=== PATIENT | female | born 1930 | race Caucasian/White ===

== ENCOUNTER 2018-04-16 01:43 | Observation (INO) | payer MEDICARE, BC ==
--- NOTE | 2018-04-16 01:49 | EDM.PDOC ---
ED HPI GENERAL MEDICAL PROBLEM - General Stated Complaint: AMBULANCE - FELL Time Seen by Provider: 04/16/18 01:45 Source of Information: Reports: Patient, EMS History Limitations: Reports: No Limitations - History of Present Illness INITIAL COMMENTS - FREE TEXT/NARRATIVE: initially pt unable recall what happened except going to bathroom EMS arrived with pt sitting on bed c/o pain left arm left brow. pt now c/o nausea and hit her face against door frame managed to get back up to bed and called Left Chest Pain Score (Numeric/FACES): 5 - Related Data Allergies Allergy/AdvReac Type Severity Reaction Status Date / Time amoxicillin Allergy Rash Verified 04/16/18 02:43 clavulanic acid Allergy Rash Verified 04/16/18 02:43 [From Augmentin] sulfamethoxazole Allergy Cannot Verified 04/16/18 02:43 [From Bactrim] Remember trimethoprim [From Bactrim] Allergy Cannot Verified 04/16/18 02:43 Remember levofloxacin [From Levaquin] AdvReac Nausea Verified 04/16/18 02:43 Home Meds: Home Meds Calcium Carb/Vitamin D3/Vit K1 [Viactiv Soft Chew Tablet] 1 each PO DAILY [History] Cholestyramine/Aspartame [Cholestyramine Light] 4 gm PO DAILY 04/16/18 [History] Folic Acid 1 mg PO DAILY 04/16/18 [History] Oxybutynin Chloride [Ditropan Xl] 10 mg PO DAILY 04/16/18 [History] Simvastatin [Zocor] 40 mg PO BEDTIME 04/16/18 [History] ED ROS GENERAL - Review of Systems Review Of Systems: ROS reveals no pertinent complaints other than HPI. ED EXAM, HEAD INJURY - Physical Exam Exam: See Below Exam Limited By: No Limitations General Appearance: Alert, WD/WN Head: Other (left brow haematoma). No: Perez's Sign, Raccoon Eyes Nexus Criteria: No: Posterior, Midline Cervical Tenderness, Evidence of Intoxication, Altered Level of Consciousness, Focal Neurological Deficit, Painful Distraction Injuries Ears: Hearing Grossly Normal Throat/Mouth: Normal Voice, No Airway Compromise Neck: Non-Tender, Full Range of Motion Respiratory: No Respiratory Distress, Other (tender along left lateral chest wall) Cardiovascular: Regular Rate, Rhythm GI/Abdominal Exam: Soft, Non-Tender Extremities: Other (left deltoid haematoma but able to move, NV wnl) Neurologic: No Motor/Sensory Deficits, Alert, Oriented x 3 Skin: Normal Color, Warm/Dry - Wenceslao Coma Score Best Eye Response (Wenceslao): (4) Open Spontaneously Best Verbal Response (Wenceslao): (5) Oriented Best Motor Response (Wenceslao): (6) Obeys Commands [place] Total: 15 Course - Vital Signs Last Recorded V/S: Last Vital Signs Temp 36.7 C 04/16/18 01:38 Pulse 71 04/16/18 01:38 Resp 21 H 04/16/18 01:38 BP 166/64 H 04/16/18 01:38 Pulse Ox 97 04/16/18 01:38 - Orders/Labs/Meds Labs: Laboratory Tests 04/16/18 04/16/18 Range/Units 01:50 01:50 WBC 9.7 (5.0-10.0) 10^3/uL RBC 4.34 (4.2-5.4) 10^6/uL Hgb 13.0 (12.0-16.0) g/dL Hct 39.2 (37.0-47.0) % MCV 90.3 (80-100) fL MCH 30.0 (27.0-34.0) pg MCHC 33.2 (33.0-35.0) g/dL Plt Count 197 (150-450) 10^3/uL Neut % (Auto) 82.3 H (42.2-75.2) % Lymph % (Auto) 8.9 L (20.5-50.1) % [place] % (Auto) 7.9 (2-8) % Eos % (Auto) 0.7 L (1.0-3.0) % Baso % (Auto) 0.2 (0.0-1.0) % Sodium 136 (135-145) mmol/L Potassium 3.8 (3.6-5.0) mmol/L Chloride 101 (101-111) mmol/L Carbon Dioxide 27.0 (21.0-31.0) mmol/L Anion Gap 11.8 BUN 15 (7-18) mg/dL Creatinine 0.7 (0.6-1.3) mg/dL Est Cr Clr Drug Dosing TNP Estimated GFR (MDRD) > 60 BUN/Creatinine Ratio 21.42 Glucose 144 H (74-105) mg/dL Calcium 8.5 (8.4-10.2) mg/dl Total Bilirubin 0.5 (0.2-1.0) mg/dL AST 28 (10-42) IU/L ALT 21 (10-60) IU/L Alkaline Phosphatase 47 (42-121) IU/L Troponin I < 0.02 (0.00-0.02) ng/ml Total Protein 6.5 L (6.7-8.2) g/dl Albumin 3.7 (3.2-5.5) g/dl Globulin 2.8 Albumin/Globulin Ratio 1.32 Meds: Medications Discontinued Medications Generic Name Dose Route Start Last Admin Trade Name Freq PRN Reason Stop Dose Admin Hydromorphone HCl 1 mg 04/16/18 03:34 Dilaudid IVPUSH 04/16/18 03:35 ONETIME ONE Morphine Sulfate 1 mg 04/16/18 02:08 04/16/18 02:19 Morphine IVPUSH 04/16/18 02:09 1 mg ONETIME ONE Administration Ondansetron HCl 4 mg 04/16/18 01:51 04/16/18 02:00 Zofran IV 04/16/18 01:52 4 mg ONETIME ONE Administration - Re-Assessments/Exams Free Text/Narrative Re-Assessment/Exam: 04/16/18 03:[address] Bosch who kindly admitted pt to observation Departure - Departure Time of Disposition: 03:38 Disposition: Refer to Observation Condition: Fair Clinical Impression: Multiple rib fractures Qualifiers: Encounter type: initial encounter Fracture type: closed Laterality: left Qualified Code(s): S22.42XA - Multiple fractures of ribs, left side, initial encounter for closed fracture Forehead contusion Qualifiers: Encounter type: initial encounter Qualified Code(s): S00.83XA - Contusion of other part of head, initial encounter Contusion, arm, upper Qualifiers: Encounter type: initial encounter Laterality: left Qualified Code(s): S40.022A - Contusion of left upper arm, initial encounter - Discharge Information Forms: ED Department Discharge
[2018-04-16] MEDS ORDERED: Ondansetron 4 MG/2 ML SDV IV ONE (01:51)
[2018-04-16] MEDS ORDERED: Morphine 2 MG/ML Syringe IVPUSH ONE (02:08)
[2018-04-16 02:15] LABS: CHLORIDE,CL 101 mmol/L (101-111); SODIUM,NA 136 mmol/L (135-145)
[2018-04-16] MEDS ORDERED: HYDROmorphone 0.5 MG/0.5 ML Syringe IVPUSH ONE (03:34)
[2018-04-16] MEDS ORDERED: Metoclopramide 10 MG/2 ML SDV IVPUSH ONE (04:11)
[2018-04-16] MEDS ORDERED: Sodium Chloride 0.9% 10 ML Syringe FLUSH PRN (05:24)
[2018-04-16] MEDS ORDERED: Ibuprofen 400 MG Tab PO PRN (05:24)
[2018-04-16] MEDS ORDERED: Acetaminophen 325 MG Tab PO PRN (05:24)
[2018-04-16] MEDS ORDERED: Zolpidem 5 MG Tab PO PRN (05:24)
[2018-04-16] MEDS ORDERED: Morphine 2 MG/ML Syringe IVPUSH PRN (05:24)
[2018-04-16] MEDS: Ondansetron 4 MG Tab.DIS PO PRN (08:25)
[2018-04-16] MEDS ORDERED: Lidocaine 5% 700 MG Patch TOP SCH (09:00)
[2018-04-16] MEDS: oxyCODONE 5 MG Tab PO PRN (10:30)
--- NOTE | 2018-04-16 10:36 | PCM.HP ---
H&P History of Present Illness - General Date of Service: 04/16/18 Admit Problem/Dx: Admission Diagnosis/Problem Admission Diagnosis/Problem Fall Source of Information: Patient, Provider - History of Present Illness Initial Comments - Free Text/Narative: The patient is an 87-year-old lady who has a history of dyslipidemia. The patient reassessed in an assisted living facility. Last night the patient got up and somehow fell into the door frame. She hit her head and chest. According to the patient there was no associated loss of consciousness. No chest pain, no shortness of breath. Otherwise she has been in good health lately. She has been quite active. Left Chest Pain Score (Numeric/FACES): 0 - Related Data Allergies/Adverse Reactions: Allergies Allergy/AdvReac Type Severity Reaction Status Date / Time amoxicillin Allergy Rash Verified 04/16/18 04:04 clavulanic acid Allergy Rash Verified 04/16/18 04:04 [From Augmentin] sulfamethoxazole Allergy Cannot Verified 04/16/18 04:04 [From Bactrim] Remember trimethoprim [From Bactrim] Allergy Cannot Verified 04/16/18 04:04 Remember levofloxacin [From Levaquin] AdvReac Nausea Verified 04/16/18 04:04 Home Medications: Home Meds Calcium Carb/Vitamin D3/Vit K1 [Viactiv Soft Chew Tablet] 1 each PO DAILY [History] Cholestyramine/Aspartame [Cholestyramine Light] 4 gm PO DAILY 04/16/18 [History] Folic Acid 1 mg PO DAILY 04/16/18 [History] Oxybutynin Chloride [Ditropan Xl] 10 mg PO DAILY 04/16/18 [History] Simvastatin [Zocor] 40 mg PO BEDTIME 04/16/18 [History] Past Medical History Cardiovascular History: Reports: High Cholesterol Gastrointestinal History: Reports: Diverticulosis Genitourinary History: Reports: Other (See Below) Other Genitourinary History: overactive bladder Musculoskeletal History: Reports: Osteoporosis, RA, Other (See Below) Other Musculoskeletal History: DJD Dermatologic History: Reports: Other (See Below) Other Dermatologic History: actinic keratosis - Past Surgical History GI Surgical History: Reports: Appendectomy, Cholecystectomy, Colonoscopy Female Surgical History: Reports: Breast Biopsy, Hysterectomy Musculoskeletal Surgical History: Reports: Hip Replacement, Other (See Below) Other Musculoskeletal Surgeries/Procedures:: total left hip replacement. steroid injection right shoulder 03/28/18 Dermatological Surgical History: Reports: Skin Biopsy Social & Family History - Family History Family Medical History: Noncontributory - Tobacco Use Smoking Status *Q: Unknown Ever Smoked Second Hand Smoke Exposure: No - Caffeine Use Caffeine Use: Reports: None - Recreational Drug Use Recreational Drug Use: No H&P Review of Systems - Review of Systems: Review Of Systems: See Below General: Denies: Fever, Chills Pulmonary: Denies: Shortness of Breath Cardiovascular: Reports: Chest Pain (Since the fall with deep breath) Gastrointestinal: Denies: Abdominal Pain Genitourinary: Denies: Dysuria Psychiatric: Denies: Confusion Neurological: Denies: Dizziness, Syncope Exam - Exam Exam: See Below - Vital Signs Vital Signs: Last Vital Signs Temp 36.5 C 04/16/18 08:00 Pulse 117 H 04/16/18 08:00 Resp 18 04/16/18 08:00 BP 167/80 H 04/16/18 08:00 Pulse Ox 92 L 04/16/18 08:00 Weight: 63.503 kg - Exam General: Alert, Oriented Neck: Supple Lungs: Clear to Auscultation, Normal Respiratory Effort Cardiovascular: Regular Rate, Regular Rhythm, Systolic Murmur GI/Abdominal Exam: Normal Bowel Sounds, Soft, Non-Tender Extremities: No Pedal Edema - Patient Data Lab Results Last 24 hrs: Laboratory Results - last 24 hr 04/16/18 04/16/18 Range/Units 01:50 01:50 WBC 9.7 (5.0-10.0) 10^3/uL RBC 4.34 (4.2-5.4) 10^6/uL Hgb 13.0 (12.0-16.0) g/dL Hct 39.2 (37.0-47.0) % MCV 90.3 (80-100) fL MCH 30.0 (27.0-34.0) pg MCHC 33.2 (33.0-35.0) g/dL Plt Count 197 (150-450) 10^3/uL Neut % (Auto) 82.3 H (42.2-75.2) % Lymph % (Auto) 8.9 L (20.5-50.1) % [place] % (Auto) 7.9 (2-8) % Eos % (Auto) 0.7 L (1.0-3.0) % Baso % (Auto) 0.2 (0.0-1.0) % Sodium 136 (135-145) mmol/L Potassium 3.8 (3.6-5.0) mmol/L Chloride 101 (101-111) mmol/L Carbon Dioxide 27.0 (21.0-31.0) mmol/L Anion Gap 11.8 BUN 15 (7-18) mg/dL Creatinine 0.7 (0.6-1.3) mg/dL Est Cr Clr Drug Dosing TNP Estimated GFR (MDRD) > 60 BUN/Creatinine Ratio 21.42 Glucose 144 H (74-105) mg/dL Calcium 8.5 (8.4-10.2) mg/dl Total Bilirubin 0.5 (0.2-1.0) mg/dL AST 28 (10-42) IU/L ALT 21 (10-60) IU/L Alkaline Phosphatase 47 (42-121) IU/L Troponin I < 0.02 (0.00-0.02) ng/ml Total Protein 6.5 L (6.7-8.2) g/dl Albumin 3.7 (3.2-5.5) g/dl Globulin 2.8 Albumin/Globulin Ratio 1.32 Result Diagrams: 04/16/18 01:50 04/16/18 01:50 Imaging Impressions Last 24 hrs: Per reading on CT of the chest that the patient was noted to have nondisplaced fractures of the fourth through ninth ribs on the left posterior left early. No associated pneumothorax. X-ray of the left arm showed no fracture CT of the head without contrast showed no acute infarction, intracranial hemorrhage or mass CT of the cervical spine showed no acute fracture dislocation - Problem List (1) Contusion, arm, upper SNOMED Code(s): 64685623 ICD Code: S40.029A - CONTUSION OF UNSPECIFIED UPPER ARM, INITIAL ENCOUNTER Status: Acute Current Visit: No Qualifiers: Encounter type: initial encounter Laterality: left Qualified Code(s): S40.022A - Contusion of left upper arm, initial encounter (2) Forehead contusion SNOMED Code(s): 797497924 ICD Code: S00.83XA - CONTUSION OF OTHER PART OF HEAD, INITIAL ENCOUNTER Status: Acute Current Visit: No Qualifiers: Encounter type: initial encounter Qualified Code(s): S00.83XA - Contusion of other part of head, initial encounter (3) Multiple rib fractures SNOMED Code(s): 3202021 ICD Code: S22.49XA - MULTIPLE FRACTURES OF RIBS, UNSP SIDE, INIT FOR CLOS FX Status: Acute Current Visit: No Qualifiers: Encounter type: initial encounter Fracture type: closed Laterality: left Qualified Code(s): S22.42XA - Multiple fractures of ribs, left side, initial encounter for closed fracture Problem List Initiated/Reviewed/Updated: Yes Orders Last 24hrs: Active Orders 24 hr Category Date Time Status Patient Status [ADT] Routine ADT 04/16/18 05:24 Active IS (RT) [RT Incentive Spirometry] [RC] ASDIRECTED Care 04/16/18 05:31 Active Oxygen Therapy [RC] PRN Care 04/16/18 05:24 Active Peripheral IV Care [RC] 08,20 Care 04/16/18 05:25 Active Up With Assistance [RC] ASDIRECTED Care 04/16/18 05:24 Active VTE/DVT Education [RC] PER UNIT ROUTINE Care 04/16/18 05:24 Active Vital Signs [RC] 04,08,12,16,20,00 Care 04/16/18 05:24 Active OT Evaluation and Treatment [CONS] Routine Cons 04/16/18 05:24 Active PT Evaluation and Treatment [CONS] Routine Cons 04/16/18 05:24 Active Regular Diet [DIET] Diet 04/16/18 Breakfast Active BASIC METABOLIC PANEL,BMP [CHEM] AM Lab 04/17/18 05:15 Ordered CBC WITH AUTO DIFF [HEME] AM Lab 04/17/18 05:15 Ordered Acetaminophen [Tylenol] Med 04/16/18 05:24 Active 650 mg PO Q4H PRN Folic Acid Med 04/17/18 09:00 Ordered 1 mg PO DAILY Ibuprofen [Motrin] Med 04/16/18 05:24 Active 400 mg PO Q6H PRN Lidocaine 5% [Lidoderm 5%] Med 04/16/18 09:00 Active 700 mg TOP DAILY Morphine Med 04/16/18 05:24 Active 1 mg IVPUSH Q2H PRN Ondansetron [Zofran ODT] Med 04/16/18 05:24 Active 4 mg PO Q6H PRN Oxybutynin Chloride [Ditropan Xl] Med 04/17/18 09:00 Ordered 10 mg PO DAILY Simvastatin [Zocor] Med 04/16/18 21:00 Ordered 40 mg PO BEDTIME Sodium Chloride 0.9% [Saline Flush] Med 04/16/18 05:24 Active 10 ml FLUSH ASDIRECTED PRN Zolpidem [Ambien] Med 04/16/18 05:24 Active 5 mg PO BEDTIME PRN oxyCODONE Med 04/16/18 05:24 Active 5 mg PO Q4H PRN Antiembolic Hose [OM.PC] Per Unit Routine Oth 04/16/18 05:24 Ordered Peripheral IV Insertion Adult [OM.PC] Routine Oth 04/16/18 05:24 Ordered Saline Lock Insert [OM.PC] Routine Oth 04/16/18 05:24 Ordered Resuscitation Status Routine Resus Stat 04/16/18 05:24 Ordered Medication Orders Acetaminophen (Tylenol) 650 mg PO Q4H PRN PRN Reason: Pain (Mild 1-3)/fever Folic Acid (Folic Acid) 1 mg PO DAILY [facility] Ibuprofen (Motrin) 400 mg PO Q6H PRN PRN Reason: Pain (mild 1-3) Lidocaine (Lidoderm 5%) 700 mg TOP DAILY [facility] Morphine Sulfate (Morphine) 1 mg IVPUSH Q2H PRN PRN Reason: Pain (severe 7-10) Non-Formulary Medication (Oxybutynin Chloride [Ditropan Xl]) 10 mg PO DAILY [facility] Ondansetron HCl (Zofran Odt) 4 mg PO Q6H PRN PRN Reason: nausea, able to take PO Last Admin: 04/16/18 08:25 Dose: 4 mg Oxycodone HCl (Oxycodone) 5 mg PO Q4H PRN PRN Reason: Pain (moderate 4-6) Simvastatin (Zocor) 40 mg PO BEDTIME [facility] Sodium Chloride (Saline Flush) 10 ml FLUSH ASDIRECTED PRN PRN Reason: Keep Vein Open Zolpidem Tartrate (Ambien) 5 mg PO BEDTIME PRN PRN Reason: Sleep Assessment/Plan Comment:: 87-year-old lady who lives in assisted living facility. She has been quite active and moving around independently. She had a fall. No apparent loss of consciousness. She has a apparent injury to left forehead. #1 fall no apparent syncopal We'll follow clinically Will have physical and occupational therapy evaluation and treatment #2 left sided rib fractures Severe pain with movements. We'll start scheduled Tylenol, Lidoderm patch Use Motrin, oxycodone, IV morphine as needed for pain. #3 dyslipidemia Continue Zocor #4 DVT prophylaxis With the bruises I we'll hold the heparin/Lovenox for today Use KIRAN rosales
[2018-04-16] MEDS: Acetaminophen 325 MG Tab PO SCH ×3 (13:47→20:44)
[2018-04-16] MEDS: Simvastatin 40 MG Tab PO SCH (20:44)
[2018-04-17] MEDS: oxyCODONE 5 MG Tab PO PRN ×2 (01:39→09:35)
[2018-04-17 06:55] LABS: CHLORIDE,CL 99 mmol/L (101-111); SODIUM,NA 135 mmol/L (135-145)
[2018-04-17] MEDS: Folic Acid 1 MG Tab PO SCH (09:35)
[2018-04-17] MEDS: Oxybutynin 5 MG Tab.ER PO SCH (09:35)
[2018-04-17] MEDS: Lidocaine 5% 700 MG Patch TOP SCH (09:37)
[2018-04-17] MEDS: Acetaminophen 325 MG Tab PO SCH ×3 (09:37→21:43)
[2018-04-17] MEDS ORDERED: oxyCODONE 5 MG Tab PO PRN (12:37)
--- NOTE | 2018-04-17 12:37 | PCM.PN ---
- General Info Date of Service: 04/17/18 Admission Dx/Problem (Free Text): Admission Diagnosis/Problem Admission Diagnosis/Problem Fall Subjective Update: Complains of no pain while in bed and not moving. When getting up or turning in bed she has moderate to severe left chest wall pain. Had constipation earlier but then had a bowel movement yet today. No associated fever, cough. Was feeling lightheaded after taking an oxycodone. - Review of Systems General: Reports: Malaise. Denies: Fever, Weakness Pulmonary: Denies: Shortness of Breath Cardiovascular: Reports: Chest Pain (On the left side with movements) Gastrointestinal: Reports: Constipation. Denies: Abdominal Pain Genitourinary: Denies: Dysuria Neurological: Denies: Confusion, Syncope, Change in Speech - Patient Data Vitals - Most Recent: Last Vital Signs Temp 36.3 C 04/17/18 11:13 Pulse 72 04/17/18 11:13 Resp 20 04/17/18 11:13 BP 142/94 H 04/17/18 11:13 Pulse Ox 94 L 04/17/18 11:13 Weight - Most Recent: 63.503 kg I&O - Last 24 Hours: Intake & Output 04/16/18 04/17/18 04/17/18 22:59 06:59 14:59 Intake Total 530 Output Total 475 Balance 55 Lab Results Last 24 Hours: Laboratory Results - last 24 hr 04/17/18 04/17/18 Range/Units 06:00 06:00 WBC 9.9 (5.0-10.0) 10^3/uL RBC 4.27 (4.2-5.4) 10^6/uL Hgb 12.9 (12.0-16.0) g/dL Hct 38.7 (37.0-47.0) % MCV 90.6 (80-100) fL MCH 30.2 (27.0-34.0) pg MCHC 33.3 (33.0-35.0) g/dL Plt Count 202 (150-450) 10^3/uL Neut % (Auto) 85.8 H (42.2-75.2) % Lymph % (Auto) 6.9 L (20.5-50.1) % [place] % (Auto) 7.2 (2-8) % Eos % (Auto) 0.0 L (1.0-3.0) % Baso % (Auto) 0.1 (0.0-1.0) % Sodium 135 (135-145) mmol/L Potassium 3.6 (3.6-5.0) mmol/L Chloride 99 L (101-111) mmol/L Carbon Dioxide 28.0 (21.0-31.0) mmol/L Anion Gap 11.6 BUN 16 (7-18) mg/dL Creatinine 0.6 (0.6-1.3) mg/dL Est Cr Clr Drug Dosing 52.58 mL/min Estimated GFR (MDRD) > 60 Glucose 114 H (74-105) mg/dL Calcium 8.5 (8.4-10.2) mg/dl Med Orders - Current: Current Medications Acetaminophen (Tylenol) 650 mg PO Q4H PRN PRN Reason: Pain (Mild 1-3)/fever Acetaminophen (Tylenol) 650 mg PO TID [facility] Last Admin: 04/17/18 09:37 Dose: 650 mg Folic Acid (Folic Acid) 1 mg PO DAILY [facility] Last Admin: 04/17/18 09:35 Dose: 1 mg Ibuprofen (Motrin) 400 mg PO Q6H PRN PRN Reason: Pain (mild 1-3) Lidocaine (Lidoderm 5%) 700 mg TOP DAILY [facility] Last Admin: 04/17/18 09:37 Dose: 700 mg Miscellaneous Information (Remove Patch) 1 ea TRDERM DAILY@1999 [facility] Morphine Sulfate (Morphine) 1 mg IVPUSH Q2H PRN PRN Reason: Pain (severe 7-10) Ondansetron HCl (Zofran Odt) 4 mg PO Q6H PRN PRN Reason: nausea, able to take PO Last Admin: 04/16/18 08:25 Dose: 4 mg Oxybutynin Chloride (Oxybutynin Er) 10 mg PO DAILY [facility] Last Admin: 04/17/18 09:35 Dose: 10 mg Oxycodone HCl (Oxycodone) 5 mg PO Q4H PRN PRN Reason: Pain (moderate 4-6) Last Admin: 04/17/18 09:35 Dose: 5 mg Senna/Docusate Sodium (Senna Plus) 1 tab PO BID [facility] Simvastatin (Zocor) 40 mg PO BEDTIME [facility] Last Admin: 04/16/18 20:44 Dose: 40 mg Sodium Chloride (Saline Flush) 10 ml FLUSH ASDIRECTED PRN PRN Reason: Keep Vein Open Last Admin: 04/16/18 20:46 Dose: 10 ml Zolpidem Tartrate (Ambien) 5 mg PO BEDTIME PRN PRN Reason: Sleep Discontinued Medications Hydromorphone HCl (Dilaudid) 1 mg IVPUSH ONETIME ONE Stop: 04/16/18 03:35 Last Admin: 04/16/18 04:25 Dose: 1 mg Lidocaine (Lidoderm 5%) 700 mg TOP DAILY [facility] Last Admin: 04/16/18 10:28 Dose: 700 mg Metoclopramide HCl (Reglan) 10 mg IVPUSH ONETIME ONE Stop: 04/16/18 04:12 Last Admin: 04/16/18 04:19 Dose: 10 mg Morphine Sulfate (Morphine) 1 mg IVPUSH ONETIME ONE Stop: 04/16/18 02:09 Last Admin: 04/16/18 02:19 Dose: 1 mg Ondansetron HCl (Zofran) 4 mg IV ONETIME ONE Stop: 04/16/18 01:52 Last Admin: 04/16/18 02:00 Dose: 4 mg - Exam General: Alert, Oriented Neck: Supple Lungs: Clear to Auscultation, Normal Respiratory Effort Cardiovascular: Regular Rate, Regular Rhythm Extremities: No Pedal Edema - Problem List & Annotations (1) Contusion, arm, upper SNOMED Code(s): 42200006 Code(s): S40.029A - CONTUSION OF UNSPECIFIED UPPER ARM, INITIAL ENCOUNTER Status: Acute Current Visit: No Qualifiers: Encounter type: initial encounter Laterality: left Qualified Code(s): S40.022A - Contusion of left upper arm, initial encounter (2) Forehead contusion SNOMED Code(s): 420848610 Code(s): S00.83XA - CONTUSION OF OTHER PART OF HEAD, INITIAL ENCOUNTER Status: Acute Current Visit: No Qualifiers: Encounter type: initial encounter Qualified Code(s): S00.83XA - Contusion of other part of head, initial encounter (3) Multiple rib fractures SNOMED Code(s): 8373990 Code(s): S22.49XA - MULTIPLE FRACTURES OF RIBS, UNSP SIDE, INIT FOR CLOS FX Status: Acute Current Visit: No Qualifiers: Encounter type: initial encounter Fracture type: closed Laterality: left Qualified Code(s): S22.42XA - Multiple fractures of ribs, left side, initial encounter for closed fracture - Problem List Review Problem List Initiated/Reviewed/Updated: Yes - My Orders Last 24 Hours: My Active Orders 04/16/18 21:00 Simvastatin [Zocor] 40 mg PO BEDTIME 04/17/18 09:00 Folic Acid 1 mg PO DAILY Lidocaine 5% [Lidoderm 5%] 700 mg TOP DAILY Oxybutynin [Oxybutynin ER] 10 mg PO DAILY 04/17/18 20:00 Remove Patch 1 ea TRDERM DAILY@199904/17/18 21:00 Docusate Sodium/Sennosides [Senna Plus] 1 tab PO BID - Plan Plan:: 87-year-old lady who lives in assisted living facility. She has been quite active and moving around independently. She had a fall. No apparent loss of consciousness. She has a apparent injury to left forehead. #1 fall no apparent syncope We'll follow clinically Continue to have physical and occupational therapy evaluation and treatment #2 left sided rib fractures Severe pain with movements. We'll start scheduled Tylenol, Lidoderm patch Use Motrin, oxycodone, IV morphine as needed for pain. We'll decrease oxycodone dose. #3 dyslipidemia Continue Zocor #4 DVT prophylaxis With the bruises I will hold the heparin/Lovenox for now Use KIRAN rosales
[2018-04-17] MEDS: Ondansetron 4 MG Tab.DIS PO PRN (15:00)
[2018-04-17] MEDS: Metoclopramide 10 MG Tab PO PRN (18:11)
[2018-04-17] MEDS: Simvastatin 40 MG Tab PO SCH (21:42)
[2018-04-17] MEDS: REMOVE LIDOCAINE TRDERM SCH (21:45)
[2018-04-18] MEDS: Lidocaine 5% 700 MG Patch TOP SCH (09:41)
[2018-04-18] MEDS: Oxybutynin 5 MG Tab.ER PO SCH (09:42)
[2018-04-18] MEDS: Acetaminophen 325 MG Tab PO SCH ×3 (09:42→21:39)
[2018-04-18] MEDS: Ondansetron 4 MG Tab.DIS PO PRN (09:43)
[2018-04-18] MEDS: Folic Acid 1 MG Tab PO SCH (09:43)
--- NOTE | 2018-04-18 11:12 | PCM.PN ---
- General Info Date of Service: 04/18/18 Admission Dx/Problem (Free Text): Admission Diagnosis/Problem Admission Diagnosis/Problem Fall Subjective Update: Complains of no pain while in bed and not moving. When getting up or turning in bed she has moderate to severe left chest wall pain sometimes associated with nausea, dry heaving. pain since fall, No associated fever, cough. Functional Status: Reports: Tolerating Diet. Denies: Pain Controlled - Review of Systems General: Denies: Fever, Weakness Pulmonary: Denies: Shortness of Breath Cardiovascular: Reports: Chest Pain Gastrointestinal: Denies: Abdominal Pain Neurological: Denies: Confusion - Patient Data Vitals - Most Recent: Last Vital Signs Temp 37.1 C 04/18/18 07:25 Pulse 79 04/18/18 07:25 Resp 18 04/18/18 07:25 BP 175/70 H 04/18/18 07:25 Pulse Ox 94 L 04/18/18 07:25 Weight - Most Recent: 63.503 kg I&O - Last 24 Hours: Intake & Output 04/17/18 04/18/18 04/18/18 22:59 06:59 14:59 Intake Total 250 100 100 Output Total 450 Balance -200 100 100 Med Orders - Current: Current Medications Acetaminophen (Tylenol) 650 mg PO Q4H PRN PRN Reason: Pain (Mild 1-3)/fever Acetaminophen (Tylenol) 650 mg PO TID [facility] Last Admin: 04/18/18 09:42 Dose: 650 mg Folic Acid (Folic Acid) 1 mg PO DAILY [facility] Last Admin: 04/18/18 09:43 Dose: 1 mg Ibuprofen (Motrin) 400 mg PO Q6H PRN PRN Reason: Pain (mild 1-3) Lidocaine (Lidoderm 5%) 700 mg TOP DAILY [facility] Last Admin: 04/18/18 09:41 Dose: 700 mg Metoclopramide HCl (Reglan) 10 mg PO Q6H PRN PRN Reason: Nausea Last Admin: 04/17/18 18:11 Dose: 10 mg Miscellaneous Information (Remove Patch) 1 ea TRDERM DAILY@1999 [facility] Last Admin: 04/17/18 21:45 Dose: Not Given Morphine Sulfate (Morphine) 1 mg IVPUSH Q2H PRN PRN Reason: Pain (severe 7-10) Ondansetron HCl (Zofran Odt) 4 mg PO Q6H PRN PRN Reason: nausea, able to take PO Last Admin: 04/18/18 09:43 Dose: 4 mg Oxybutynin Chloride (Oxybutynin Er) 10 mg PO DAILY [facility] Last Admin: 04/18/18 09:42 Dose: 10 mg Oxycodone HCl (Oxycodone) 2.5 mg PO Q4H PRN PRN Reason: Pain (moderate 4-6) Senna/Docusate Sodium (Senna Plus) 1 tab PO BID [facility] Last Admin: 04/18/18 09:43 Dose: 1 tab Simvastatin (Zocor) 40 mg PO BEDTIME [facility] Last Admin: 04/17/18 21:42 Dose: 40 mg Sodium Chloride (Saline Flush) 10 ml FLUSH ASDIRECTED PRN PRN Reason: Keep Vein Open Last Admin: 04/16/18 20:46 Dose: 10 ml Zolpidem Tartrate (Ambien) 5 mg PO BEDTIME PRN PRN Reason: Sleep Discontinued Medications Hydromorphone HCl (Dilaudid) 1 mg IVPUSH ONETIME ONE Stop: 04/16/18 03:35 Last Admin: 04/16/18 04:25 Dose: 1 mg Lidocaine (Lidoderm 5%) 700 mg TOP DAILY [facility] Last Admin: 04/16/18 10:28 Dose: 700 mg Metoclopramide HCl (Reglan) 10 mg IVPUSH ONETIME ONE Stop: 04/16/18 04:12 Last Admin: 04/16/18 04:19 Dose: 10 mg Morphine Sulfate (Morphine) 1 mg IVPUSH ONETIME ONE Stop: 04/16/18 02:09 Last Admin: 04/16/18 02:19 Dose: 1 mg Ondansetron HCl (Zofran) 4 mg IV ONETIME ONE Stop: 04/16/18 01:52 Last Admin: 04/16/18 02:00 Dose: 4 mg Oxycodone HCl (Oxycodone) 5 mg PO Q4H PRN PRN Reason: Pain (moderate 4-6) Last Admin: 04/17/18 09:35 Dose: 5 mg - Exam General: Alert, Oriented Neck: Supple Lungs: Clear to Auscultation, Normal Respiratory Effort Cardiovascular: Regular Rate, Regular Rhythm, Murmurs (syst) GI/Abdominal Exam: Normal Bowel Sounds, Soft, Non-Tender Extremities: No Pedal Edema - Problem List & Annotations (1) Contusion, arm, upper SNOMED Code(s): 86951947 Code(s): S40.029A - CONTUSION OF UNSPECIFIED UPPER ARM, INITIAL ENCOUNTER Status: Acute Current Visit: No Qualifiers: Encounter type: initial encounter Laterality: left Qualified Code(s): S40.022A - Contusion of left upper arm, initial encounter (2) Forehead contusion SNOMED Code(s): 773445298 Code(s): S00.83XA - CONTUSION OF OTHER PART OF HEAD, INITIAL ENCOUNTER Status: Acute Current Visit: No Qualifiers: Encounter type: initial encounter Qualified Code(s): S00.83XA - Contusion of other part of head, initial encounter (3) Multiple rib fractures SNOMED Code(s): 2802237 Code(s): S22.49XA - MULTIPLE FRACTURES OF RIBS, UNSP SIDE, INIT FOR CLOS FX Status: Acute Current Visit: No Qualifiers: Encounter type: initial encounter Fracture type: closed Laterality: left Qualified Code(s): S22.42XA - Multiple fractures of ribs, left side, initial encounter for closed fracture - Problem List Review Problem List Initiated/Reviewed/Updated: Yes - My Orders Last 24 Hours: My Active Orders 04/17/18 12:37 oxyCODONE 2.5 mg PO Q4H PRN 04/17/18 15:00 Communication Order [RC] 04/17/18 17:23 Metoclopramide [Reglan] 10 mg PO Q6H PRN 04/17/18 17:54 Communication Order [RC] 04/17/18 20:00 Remove Patch 1 ea TRDERM DAILY@[id number]/17/18 21:00 Docusate Sodium/Sennosides [Senna Plus] 1 tab PO BID 04/18/18 11:15 amLODIPine [Norvasc] 5 mg PO DAILY - Plan Plan:: 87-year-old lady who lives in assisted living facility. She has been quite active and moving around independently. She had a fall. No apparent loss of consciousness. She has a apparent injury to left forehead. #1 fall no apparent syncope We'll follow clinically Continue to have physical and occupational therapy evaluation and treatment #2 left sided rib fractures Severe pain with movements. continue scheduled Tylenol, Lidoderm patch Use Motrin, oxycodone, IV morphine as needed for pain. will ask anesthesia if they could eval for intercostal nerve block #3 dyslipidemia Continue Zocor #4 DVT prophylaxis start sq heparin Use KIRAN rosales
[2018-04-18] MEDS: amLODIPine 5 MG Tab PO SCH (12:03)
[2018-04-18] MEDS: Heparin Sodium 5,000 Units/ML Vial SUBCUT SCH ×2 (14:40→21:41)
[2018-04-18] MEDS: Metoclopramide 10 MG Tab PO PRN (14:53)
[2018-04-18] MEDS: Simvastatin 40 MG Tab PO SCH (21:40)
[2018-04-18] MEDS: REMOVE LIDOCAINE TRDERM SCH (21:40)
[2018-04-19] MEDS: Heparin Sodium 5,000 Units/ML Vial SUBCUT SCH (05:19)
[2018-04-19] MEDS: Lidocaine 5% 700 MG Patch TOP SCH (09:49)
[2018-04-19] MEDS: amLODIPine 5 MG Tab PO SCH (09:49)
[2018-04-19] MEDS: Folic Acid 1 MG Tab PO SCH (09:50)
[2018-04-19] MEDS: Oxybutynin 5 MG Tab.ER PO SCH (09:51)
[2018-04-19] MEDS: Acetaminophen 325 MG Tab PO SCH (09:52)
--- NOTE | 2018-04-19 12:32 | DISCH ---
ADMITTING DIAGNOSES: 1. Status post fall. 2. Left-sided rib fractures. DISCHARGE DIAGNOSES: 1. Status post fall, near syncopal episode. 2. Left-sided rib fracture, resulting in intense pain and debility. 3. Requiring Swing Bed admission for continued physical therapy and pain control. HISTORY OF PRESENT ILLNESS: Mrs. Shala Gordon is an 87-year-old female with medical history significant for hypertension and hyperlipidemia, resident of assisted living facility, was admitted to the hospital after having a fall at her home. The patient had extensive workup done on this admission including a CT scan of the head, CT scan of the chest, and cervical spine CT scan, which were all within normal limits except for left-sided rib fractures. The patient was admitted for pain control and was on opioid pain medications and Lidoderm transdermal patch. The patient has generalized debility, requiring discharge to Swing Bed for continued physical therapy, occupational therapy, and better pain control. She was discharged to Swing Bed in stable condition. DISCHARGE MEDICATIONS: Include: 1. Tylenol 650 every 4 hours as needed for pain. 2. Calcium with vitamin D one tablet daily. 3. Cholestyramine 4 mg daily. 4. Folic acid 1 mg daily. 5. Lidoderm transdermal patch 700 topical daily. 6. Oxybutynin 10 mg daily. 7. Simvastatin 40 mg at bedtime. 8. Oxycodone 2.5 mg every 4 hours as needed for pain. PHYSICAL EXAMINATION: On the day of discharge: Vital Signs: Temperature of 98.4, pulse of 74, blood pressure 135/67, respiratory rate of 15, and saturating at 92% on room air. General Appearance: The patient is well oriented to time, place, and person. Follows commands spontaneously. Cardiovascular System: S1 and S2 heard with normal intensity. No gallops. Respiratory System: Clear to auscultation bilaterally. No wheeze. No crepitations. Abdomen: Soft. Bowel sounds positive. Nontender. No rigidity. No guarding. No rebound tenderness. Extremities: No edema in bilateral lower extremities. CONDITION ON ADMISSION: Poor. CONDITION ON DISCHARGE: To Swing Bed, stable. ACTIVITY: As tolerated with fall precautions. DIET: Cardiac healthy diet. DISPOSITION: Discharged to Swing Bed. TIME SPENT: Spent over 35 minutes of time in evaluating and treating this patient and making discharge plans. [facility] /[id number]
== END 2018-04-19 13:09 | disposition swing bed (61) ==
LOC: DL.ED 01:43 → UNDOADMOB 03:53 → DL.MS 03:53
PROVIDERS: ADMIT Internal Medicine; ATTEND Internal Medicine
DX: S22.42XA Multiple fractures of ribs, left side, initial encounter for closed fracture (principal); S40.022A Contusion of left upper arm, initial encounter; S00.83XA Contusion of other part of head, initial encounter; I10 Essential (primary) hypertension; E78.5 Hyperlipidemia, unspecified; W19.XXXA Unspecified fall, initial encounter; Z79.899 Other long term (current) drug therapy; Z88.0 Allergy status to penicillin; Z88.1 Allergy status to other antibiotic agents; Z88.2 Allergy status to sulfonamides
CPT/HCPCS: 36415; 70450; 71250; 72125; 73060; 80048; 80053; 84484; 85025; 96374; 96375; 97162; 97166; 99284; 99285; A9270; J1170; J1644; J2270; J2405; J2765; J7050; 99217; 99225

== ENCOUNTER 2018-04-19 11:48 | Inpatient (IN) | payer MEDICARE, BC ==
[2018-04-19] MEDS ORDERED: Ibuprofen 400 MG Tab PO PRN (16:06)
[2018-04-19] MEDS ORDERED: Polyethylene Glycol 3350 Powder 17 GM Packet PO PRN (16:06)
[2018-04-19] MEDS ORDERED: Magnesium Hydroxide 400 MG/5 ML Susp 30 ML Cup PO PRN (16:06)
[2018-04-19] MEDS ORDERED: Temazepam 15 MG Cap PO PRN (16:06)
[2018-04-19] MEDS ORDERED: oxyCODONE 5 MG Tab PO PRN (16:41)
[2018-04-19] MEDS ORDERED: Lidocaine 5% 700 MG Patch TOP SCH (18:00)
--- NOTE | 2018-04-19 19:19 | HP ---
CHIEF COMPLAINT: Recent fall, resulting in left-sided rib fractures, requiring further physical therapy, occupational therapy, and pain management. HISTORY OF PRESENTING ILLNESS: Mrs. Shala Gordon is an 87-year-old female with medical history significant for osteoporosis, overactive bladder, history of rheumatoid arthritis in the past, degenerative disk disease, diverticulosis, was initially admitted to acute care setting last week with complaints of having a fall and noted to have left-sided rib fractures, and was continued on oral pain medication. The patient had generalized debility from the fall, and so, is being admitted to the Swing-Bed at this time. At this time, the patient complains of pain to the left side of the chest. She grades the pain as 4-5/10 in intensity, which gets aggravated on ambulation and movement, and relieved with rest and pain medication, nonradiating type of pain, not associated with any nausea or vomiting. Denies any abdominal pain. No fevers. No chills. No further episodes of fall while in the hospital. No syncopal episode noted. No headaches. No changes in the vision. The patient denied any history of chest pains on exertion. No history of dyspnea on exertion. No history of orthopnea or paroxysmal nocturnal dyspnea. The patient denied any history of hematemesis, hematochezia, or melenic stools. Normal bowel and bladder habits otherwise. REVIEW OF SYSTEMS: A complete review of system including skin, ear, nose, and throat, cardiovascular system, respiratory system, gastrointestinal system, genitourinary system, hematology, oncology, neurology, allergy, immunology, constitutional were all evaluated and were negative except for the above said notes. PAST MEDICAL HISTORY: Significant for: 1. Rheumatoid arthritis. 2. Overactive bladder. 3. Osteoporosis. 4. Dyslipidemia. 5. Degenerative joint disease. 6. Diverticulosis. 7. Actinic keratosis. PAST SURGICAL HISTORY: Significant for: 1. Total hip replacement. 2. Skin biopsy. 3. Appendicectomy. 4. Hysterectomy. 5. Cholecystectomy. 6. Breast biopsy. FAMILY HISTORY: None, per the patient. SOCIAL HISTORY: Denied any history of smoking tobacco. History of occasional alcohol intake. ALLERGIES: The patient noted to have allergies to: 1. Amoxicillin. 2. Augmentin. 3. Bactrim. 4. Levaquin. MEDICATIONS: Home medications include: 1. Tylenol 650 every 4 hours as needed for pain. 2. Calcium carbonate with vitamin D, 1 tablet daily. 3. Cholestyramine 4 g oral daily. 4. Folic acid 1 mg daily. 5. Lidoderm transdermal patch topical daily. 6. Oxybutynin 10 mg daily. 7. Simvastatin 40 mg at bedtime. 8. Oxycodone 2.5 mg every 4 hours as needed for pain. PHYSICAL EXAMINATION: Vital Signs: Temperature of 98.2, pulse of 75, blood pressure of 136/59, respiratory rate of 20, saturating at 95% on room air. General Appearance: The patient is well oriented to time, place, and person. Follows commands spontaneously. Cardiovascular System: S1 and S2 heard with normal intensity. No gallops. Respiratory System: Clear to auscultation bilaterally. No wheeze. No crepitations. Abdomen: Soft. Bowel sounds positive. Nontender. No rigidity. Extremities: No edema in bilateral lower extremities. Neurologic: No gross focal neurological deficits. LABORATORY DATA: The patient had an extensive workup on her admission to Acute Care. She had CT scan of the cervical spine, which showed no acute fracture, dislocation, or disk herniation except for mild cervical spondylosis. CT scan of the chest showed acute nondisplaced fractures of the 4th through 9th ribs on the left posterolateral side and bibasilar areas of atelectasis. CT scan of the head showed no evidence of acute infarction, intracranial hemorrhage, or mass. X-ray of the left humerus showed no acute fracture. ASSESSMENT: 1. Status post fall, resulting in left-sided rib fractures, 4th through 9th ribs on the left posterolateral side. 2. Dyslipidemia. 3. Degenerative disk disease. 4. Generalized debility. PLAN: 1. Generalized debility: The patient will continue the physical therapy and occupational therapy while in the Swing-Bed. 2. Left rib fracture: The patient noted to have left rib fractures 4th through 9th. We will continue with current opiate pain medications and Lidoderm transdermal patch. We will further titrate the medication to optimize pain control. 3. DVT prophylaxis: The patient will be encouraged to ambulate around. We will have her on Lovenox for DVT prophylaxis. 4. Continue with physical therapy and occupational therapy. [facility] /[id number]
[2018-04-19] MEDS: Simvastatin 40 MG Tab **OWN MED PO SCH (20:55)
[2018-04-19] MEDS: Acetaminophen 325 MG Tab PO PRN (20:56)
[2018-04-20] MEDS ORDERED: REMOVE LIDOCAINE TRDERM SCH (09:00)
[2018-04-20] MEDS ORDERED: Folic Acid 1 MG Tab PO SCH (09:00)
[2018-04-20] MEDS ORDERED: ASPARTAME PO SCH (09:00)
[2018-04-20] MEDS ORDERED: CHOLESTYRAMINE PO SCH (09:00)
[2018-04-20] MEDS: Enoxaparin 40 MG/0.4 ML Syringe SUBCUT SCH (09:31)
[2018-04-20] MEDS: Lidocaine 5% 700 MG Patch TOP SCH (09:33)
[2018-04-20] MEDS: Acetaminophen 325 MG Tab PO PRN (09:34)
[2018-04-20] MEDS: VITAMIN D3 1000 UNIT PO SCH (09:34)
[2018-04-20] MEDS: OXYBUTYNIN 10 MG PO SCH (09:35)
[2018-04-20] MEDS: FOLIC ACID 400 MCG PO SCH (09:35)
[2018-04-20] MEDS ORDERED: Calcium Carbonate 500 MG Tab.Chew PO PRN (14:34)
--- NOTE | 2018-04-20 15:44 | CR ---
Clinical history: 87-year-old female with history of "multiple left rib fractures". Interpretation: Abnormal. *Multiple fractures involving the posterior lateral left third, fourth, fifth, sixth, seventh, and e ighth ribs with associated pleural reactive changes left base with some clinical scarring on the left . Note: There appears to be a small pneumothorax apex, on the left, that was not evident on March [address] scan; however, no current shift of the mediastinal structures or underlying upper lobe atelect asis/collapse. No pneumomediastinum or subcutaneous emphysema. Normal cardiac silhouette midline and left-sided aortic arch. Right chest remains clear. No pleural effusion or pneumothorax on the right. No lung mass or other focal lobar consolidation. Conclusion: Multilevel severe left rib fractures. Apparent small new loculated left apical pneumothor ax and pleural parenchymal abnormalities left base.
[2018-04-20] MEDS: CALCIUM CARB PO SCH (16:43)
[2018-04-20] MEDS: [UNRECOGNIZED DRUG - OTHER] PO PRN (16:43)
[2018-04-20] MEDS: VITAMIN D3 PO SCH (16:43)
[2018-04-20] MEDS: ACETAMINOPHEN PO PRN (16:43)
[2018-04-20] MEDS: VIT K1 PO SCH (16:43)
[2018-04-20] MEDS: REMOVE LIDOCAINE TRDERM SCH (21:46)
[2018-04-20] MEDS: Simvastatin 40 MG Tab **OWN MED PO SCH (21:46)
[2018-04-21] MEDS: [UNRECOGNIZED DRUG - OTHER] PO PRN ×2 (06:37→17:48)
[2018-04-21] MEDS: ACETAMINOPHEN PO PRN ×2 (06:37→17:48)
[2018-04-21] MEDS: Lidocaine 5% 700 MG Patch TOP SCH (10:32)
[2018-04-21] MEDS: Enoxaparin 40 MG/0.4 ML Syringe SUBCUT SCH (10:33)
[2018-04-21] MEDS: FOLIC ACID 400 MCG PO SCH (10:34)
[2018-04-21] MEDS: OXYBUTYNIN 10 MG PO SCH (10:34)
[2018-04-21] MEDS: CALCIUM CARB PO SCH (10:35)
[2018-04-21] MEDS: VITAMIN D3 1000 UNIT PO SCH (10:35)
[2018-04-21] MEDS: VITAMIN D3 PO SCH (10:35)
[2018-04-21] MEDS: VIT K1 PO SCH (10:35)
[2018-04-21] MEDS: CHOLESTYRAMINE PO SCH (10:36)
[2018-04-21] MEDS: [UNRECOGNIZED DRUG - OTHER] PO SCH (10:36)
[2018-04-21] MEDS: Ondansetron 4 MG Tab.DIS PO PRN (13:28)
[2018-04-21] MEDS: REMOVE LIDOCAINE TRDERM SCH (23:10)
[2018-04-21] MEDS: Simvastatin 40 MG Tab **OWN MED PO SCH (23:42)
[2018-04-22] MEDS: ACETAMINOPHEN PO PRN ×4 (02:19→22:46)
[2018-04-22] MEDS: [UNRECOGNIZED DRUG - OTHER] PO PRN ×4 (02:19→22:46)
[2018-04-22] MEDS: Lidocaine 5% 700 MG Patch TOP SCH (08:17)
[2018-04-22] MEDS: FOLIC ACID 400 MCG PO SCH (08:23)
[2018-04-22] MEDS: Enoxaparin 40 MG/0.4 ML Syringe SUBCUT SCH (08:23)
[2018-04-22] MEDS: OXYBUTYNIN 10 MG PO SCH (08:24)
[2018-04-22] MEDS: VITAMIN D3 1000 UNIT PO SCH (08:24)
[2018-04-22] MEDS: CALCIUM CARB PO SCH (08:25)
[2018-04-22] MEDS: [UNRECOGNIZED DRUG - OTHER] PO SCH (08:25)
[2018-04-22] MEDS: VIT K1 PO SCH (08:25)
[2018-04-22] MEDS: CHOLESTYRAMINE PO SCH (08:25)
[2018-04-22] MEDS: VITAMIN D3 PO SCH (08:25)
[2018-04-22] MEDS: Simvastatin 40 MG Tab **OWN MED PO SCH (22:45)
[2018-04-22] MEDS: REMOVE LIDOCAINE TRDERM SCH (22:46)
[2018-04-23] MEDS: Lidocaine 5% 700 MG Patch TOP SCH (09:19)
[2018-04-23] MEDS: VITAMIN D3 1000 UNIT PO SCH (09:21)
[2018-04-23] MEDS: OXYBUTYNIN 10 MG PO SCH (09:21)
[2018-04-23] MEDS: Enoxaparin 40 MG/0.4 ML Syringe SUBCUT SCH (09:22)
[2018-04-23] MEDS: FOLIC ACID 400 MCG PO SCH (09:24)
[2018-04-23] MEDS: VITAMIN D3 PO SCH (09:24)
[2018-04-23] MEDS: CALCIUM CARB PO SCH (09:24)
[2018-04-23] MEDS: VIT K1 PO SCH (09:24)
[2018-04-23] MEDS: [UNRECOGNIZED DRUG - OTHER] PO SCH (10:47)
[2018-04-23] MEDS: CHOLESTYRAMINE PO SCH (10:47)
[2018-04-23] MEDS: REMOVE LIDOCAINE TRDERM SCH (20:39)
[2018-04-23] MEDS: Simvastatin 40 MG Tab **OWN MED PO SCH (20:39)
[2018-04-23] MEDS: [UNRECOGNIZED DRUG - OTHER] PO PRN (20:40)
[2018-04-23] MEDS: ACETAMINOPHEN PO PRN (20:40)
[2018-04-24] MEDS: [UNRECOGNIZED DRUG - OTHER] PO PRN ×2 (06:32→21:36)
[2018-04-24] MEDS: ACETAMINOPHEN PO PRN ×2 (06:32→21:36)
[2018-04-24] MEDS: Lidocaine 5% 700 MG Patch TOP SCH (09:27)
[2018-04-24] MEDS: Enoxaparin 40 MG/0.4 ML Syringe SUBCUT SCH (09:28)
[2018-04-24] MEDS: FOLIC ACID 400 MCG PO SCH (09:29)
[2018-04-24] MEDS: [UNRECOGNIZED DRUG - OTHER] PO SCH (09:30)
[2018-04-24] MEDS: CALCIUM CARB PO SCH (09:30)
[2018-04-24] MEDS: VITAMIN D3 1000 UNIT PO SCH (09:30)
[2018-04-24] MEDS: CHOLESTYRAMINE PO SCH (09:30)
[2018-04-24] MEDS: OXYBUTYNIN 10 MG PO SCH (09:30)
[2018-04-24] MEDS: VIT K1 PO SCH (09:30)
[2018-04-24] MEDS: VITAMIN D3 PO SCH (09:30)
[2018-04-24] MEDS: IBUPROFEN 200 MG PO PRN (13:27)
[2018-04-24] MEDS: Simvastatin 40 MG Tab **OWN MED PO SCH (21:36)
[2018-04-24] MEDS: REMOVE LIDOCAINE TRDERM SCH (21:47)
[2018-04-25] MEDS: IBUPROFEN 200 MG PO PRN ×2 (03:10→14:03)
[2018-04-25] MEDS: VITAMIN D3 1000 UNIT PO SCH (08:36)
[2018-04-25] MEDS: OXYBUTYNIN 10 MG PO SCH (08:36)
[2018-04-25] MEDS: ACETAMINOPHEN PO PRN ×2 (08:37→20:59)
[2018-04-25] MEDS: [UNRECOGNIZED DRUG - OTHER] PO PRN ×2 (08:37→20:59)
[2018-04-25] MEDS: FOLIC ACID 400 MCG PO SCH (08:37)
[2018-04-25] MEDS: Enoxaparin 40 MG/0.4 ML Syringe SUBCUT SCH (08:38)
[2018-04-25] MEDS: VIT K1 PO SCH (08:38)
[2018-04-25] MEDS: Lidocaine 5% 700 MG Patch TOP SCH (08:38)
[2018-04-25] MEDS: VITAMIN D3 PO SCH (08:38)
[2018-04-25] MEDS: CALCIUM CARB PO SCH (08:38)
[2018-04-25] MEDS: CHOLESTYRAMINE PO SCH (09:16)
[2018-04-25] MEDS: [UNRECOGNIZED DRUG - OTHER] PO SCH (09:16)
--- NOTE | 2018-04-25 10:00 | PN ---
DATE: 04/23/2018 SUBJECTIVE: Mrs. Gordon is an 87-year-old lady who lives at [facility]. She unfortunately had a fall at home and sustained multiple rib fractures. She broke 6 posterior lateral ribs on the left side. On 04/20/2018, we did get a followup chest x-ray; and this showed a small pneumothorax on the left which was not evident on the admission CT scan of 04/16/2018. There was no other injury noted. She was asymptomatic. She was not having increased difficulties with breathing, and we will continue to monitor her closely. Nursing staff is quite concerned. She is very difficult to motivate. She is reluctant to get out of bed. She states that she does, but the fact is she does sit in the bed all day. Therapy has been trying to work with her. Nursing staff continues to encourage her to be up and out of bed. A review of her clinical data shows that her vital signs are stable. She remains afebrile. Oxygen saturations are above 95% on room air. She is drinking adequate fluids. She is voiding and moving her bowels. Appetite appears to be improving, and she is tolerating her diet. OBJECTIVE: General: On exam, she is seated comfortably in her bed. She voices no concerns or complaints. We did instruct her at the end of last week how to splint her chest wall; and over the weekend, her granddaughter who is a nurse in [place], brought her one of their cardiac heart pillows; and she has been using the heart pillow to splint the chest wall. She still is reluctant to get out of bed. Nursing staff noted that she also had several episodes of incontinence of both bowel and bladder since admission. She has been using her incentive spirometer when encouraged to do so. Vital Signs: Stable. She is afebrile. HEENT: Unremarkable. ENT is clear. Chest: Examination of the chest showed improved air movement since the end of last week. She still has some guarding on the left with deep breathing. There are no wheezes or rales appreciated. Heart: Showed regular rate and rhythm. Abdomen: Benign. Extremities: Showed no edema. ASSESSMENT AND PLAN: She does have resolving bruising on the left forehead and periorbital area, where she struck her head in the fall. We will continue with the present management particularly and encouraging her to be up, ambulatory, sitting, doing deep breathing, and coughing. We reviewed with her the risks of not doing these things including atelectasis, pneumonia, and bedsores. We will continue to encourage her. No changes are made in her management. We did try to improve her bowel regimen somewhat. We are also trying to encourage her to stay regular as inactivity will increase her risk for constipation. No other changes are made in her care today. [facility] /[id number]
[2018-04-25] MEDS: Simvastatin 40 MG Tab **OWN MED PO SCH (20:59)
[2018-04-25] MEDS: REMOVE LIDOCAINE TRDERM SCH (21:20)
[2018-04-26] MEDS: FOLIC ACID 400 MCG PO SCH (09:20)
[2018-04-26] MEDS: OXYBUTYNIN 10 MG PO SCH (09:20)
[2018-04-26] MEDS: CALCIUM CARB PO SCH (09:21)
[2018-04-26] MEDS: VITAMIN D3 PO SCH (09:21)
[2018-04-26] MEDS: VITAMIN D3 1000 UNIT PO SCH (09:21)
[2018-04-26] MEDS: [UNRECOGNIZED DRUG - OTHER] PO PRN ×2 (09:21→20:24)
[2018-04-26] MEDS: ACETAMINOPHEN PO PRN ×2 (09:21→20:24)
[2018-04-26] MEDS: VIT K1 PO SCH (09:21)
[2018-04-26] MEDS: Enoxaparin 40 MG/0.4 ML Syringe SUBCUT SCH (09:22)
[2018-04-26] MEDS: Lidocaine 5% 700 MG Patch TOP SCH (09:25)
[2018-04-26] MEDS: CHOLESTYRAMINE PO SCH (09:27)
[2018-04-26] MEDS: [UNRECOGNIZED DRUG - OTHER] PO SCH (09:27)
[2018-04-26] MEDS: IBUPROFEN 200 MG PO PRN (11:01)
[2018-04-26] MEDS: Simvastatin 40 MG Tab **OWN MED PO SCH (20:23)
[2018-04-26] MEDS: REMOVE LIDOCAINE TRDERM SCH (20:23)
[2018-04-27] MEDS: Enoxaparin 40 MG/0.4 ML Syringe SUBCUT SCH (10:04)
[2018-04-27] MEDS: Lidocaine 5% 700 MG Patch TOP SCH (10:04)
[2018-04-27] MEDS: FOLIC ACID 400 MCG PO SCH (10:05)
[2018-04-27] MEDS: VITAMIN D3 1000 UNIT PO SCH (10:06)
[2018-04-27] MEDS: OXYBUTYNIN 10 MG PO SCH (10:07)
[2018-04-27] MEDS: VIT K1 PO SCH (10:08)
[2018-04-27] MEDS: CALCIUM CARB PO SCH (10:08)
[2018-04-27] MEDS: VITAMIN D3 PO SCH (10:08)
[2018-04-27] MEDS: [UNRECOGNIZED DRUG - OTHER] PO SCH (10:09)
[2018-04-27] MEDS: CHOLESTYRAMINE PO SCH (10:09)
[2018-04-27] MEDS: [UNRECOGNIZED DRUG - OTHER] PO PRN ×2 (10:15→20:23)
[2018-04-27] MEDS: ACETAMINOPHEN PO PRN ×2 (10:15→20:23)
[2018-04-27] MEDS: IBUPROFEN 200 MG PO PRN (13:05)
[2018-04-27] MEDS: Simvastatin 40 MG Tab **OWN MED PO SCH (20:23)
[2018-04-27] MEDS: REMOVE LIDOCAINE TRDERM SCH (20:24)
[2018-04-28] MEDS: Lidocaine 5% 700 MG Patch TOP SCH (10:25)
[2018-04-28] MEDS: Enoxaparin 40 MG/0.4 ML Syringe SUBCUT SCH (10:25)
[2018-04-28] MEDS: FOLIC ACID 400 MCG PO SCH (10:48)
[2018-04-28] MEDS: OXYBUTYNIN 10 MG PO SCH (10:49)
[2018-04-28] MEDS: CALCIUM CARB PO SCH (10:50)
[2018-04-28] MEDS: CHOLESTYRAMINE PO SCH (10:50)
[2018-04-28] MEDS: VIT K1 PO SCH (10:50)
[2018-04-28] MEDS: VITAMIN D3 1000 UNIT PO SCH (10:50)
[2018-04-28] MEDS: VITAMIN D3 PO SCH (10:50)
[2018-04-28] MEDS: [UNRECOGNIZED DRUG - OTHER] PO SCH (10:50)
[2018-04-28] MEDS: IBUPROFEN 200 MG PO PRN (16:10)
[2018-04-28] MEDS: REMOVE LIDOCAINE TRDERM SCH (20:51)
[2018-04-28] MEDS: Simvastatin 40 MG Tab **OWN MED PO SCH (20:51)
[2018-04-28] MEDS: [UNRECOGNIZED DRUG - OTHER] PO PRN (21:45)
[2018-04-28] MEDS: ACETAMINOPHEN PO PRN (21:45)
[2018-04-29] MEDS: IBUPROFEN 200 MG PO PRN ×2 (05:26→19:40)
[2018-04-29] MEDS: ACETAMINOPHEN PO PRN ×2 (05:26→19:40)
[2018-04-29] MEDS: [UNRECOGNIZED DRUG - OTHER] PO PRN ×2 (05:26→19:40)
[2018-04-29] MEDS: Enoxaparin 40 MG/0.4 ML Syringe SUBCUT SCH (10:11)
[2018-04-29] MEDS: FOLIC ACID 400 MCG PO SCH (10:12)
[2018-04-29] MEDS: Lidocaine 5% 700 MG Patch TOP SCH (10:12)
[2018-04-29] MEDS: OXYBUTYNIN 10 MG PO SCH (10:13)
[2018-04-29] MEDS: VITAMIN D3 1000 UNIT PO SCH (10:13)
[2018-04-29] MEDS: VIT K1 PO SCH (10:14)
[2018-04-29] MEDS: VITAMIN D3 PO SCH (10:14)
[2018-04-29] MEDS: CHOLESTYRAMINE PO SCH (10:14)
[2018-04-29] MEDS: CALCIUM CARB PO SCH (10:14)
[2018-04-29] MEDS: [UNRECOGNIZED DRUG - OTHER] PO SCH (10:14)
[2018-04-29] MEDS: Simvastatin 40 MG Tab **OWN MED PO SCH (20:37)
[2018-04-29] MEDS: traMADol 50 MG Tab PO PRN (20:37)
[2018-04-29] MEDS: REMOVE LIDOCAINE TRDERM SCH (20:39)
[2018-04-30] MEDS: traMADol 50 MG Tab PO PRN (05:47)
--- NOTE | 2018-04-30 07:19 | PN ---
DATE: 04/28/2018 SUBJECTIVE: The patient had a good night sleep. She still complains of some left rib cage pain, but she denies any worsening of shortness of breath. Denies any fever, chills, abdominal pain, or any other complaints. OBJECTIVE: Vital Signs: Blood pressure is 102/56, pulse is 80, respirations 16, and temperature of 98.6. Heart: Regular rate and rhythm. Normal S1 and S2. No gallops. No rubs. Lungs: Equal bilaterally. No crackles. No wheezing. Abdomen: Soft and nontender. Bowel sounds positive. Extremities: Negative for any significant pedal edema. No calf tenderness. MEDICATIONS: Reviewed. PLAN: We will continue with her present management and continue with incentive spirometry. [facility] /[id number]
[2018-04-30] MEDS: [UNRECOGNIZED DRUG - OTHER] PO SCH (08:51)
[2018-04-30] MEDS: CHOLESTYRAMINE PO SCH (08:51)
[2018-04-30] MEDS: Enoxaparin 40 MG/0.4 ML Syringe SUBCUT SCH (08:59)
[2018-04-30] MEDS: Ondansetron 4 MG Tab.DIS PO PRN (08:59)
[2018-04-30] MEDS: Lidocaine 5% 700 MG Patch TOP SCH (09:00)
[2018-04-30] MEDS: FOLIC ACID 400 MCG PO SCH (11:10)
[2018-04-30] MEDS: VITAMIN D3 PO SCH (11:10)
[2018-04-30] MEDS: CALCIUM CARB PO SCH (11:10)
[2018-04-30] MEDS: OXYBUTYNIN 10 MG PO SCH (11:10)
[2018-04-30] MEDS: VITAMIN D3 1000 UNIT PO SCH (11:10)
[2018-04-30] MEDS: VIT K1 PO SCH (11:10)
[2018-04-30] MEDS: Simvastatin 40 MG Tab **OWN MED PO SCH (21:23)
[2018-04-30] MEDS: REMOVE LIDOCAINE TRDERM SCH (21:24)
[2018-05-01] MEDS: Lidocaine 5% 700 MG Patch TOP SCH (10:33)
[2018-05-01] MEDS: Enoxaparin 40 MG/0.4 ML Syringe SUBCUT SCH (10:33)
[2018-05-01] MEDS: OXYBUTYNIN 10 MG PO SCH (10:34)
[2018-05-01] MEDS: VITAMIN D3 1000 UNIT PO SCH (10:34)
[2018-05-01] MEDS: FOLIC ACID 400 MCG PO SCH (10:35)
[2018-05-01] MEDS: CHOLESTYRAMINE PO SCH (10:37)
[2018-05-01] MEDS: [UNRECOGNIZED DRUG - OTHER] PO SCH (10:37)
[2018-05-01] MEDS: VIT K1 PO SCH (10:37)
[2018-05-01] MEDS: VITAMIN D3 PO SCH (10:37)
[2018-05-01] MEDS: CALCIUM CARB PO SCH (10:37)
[2018-05-01] MEDS: REMOVE LIDOCAINE TRDERM SCH (21:18)
[2018-05-01] MEDS: Simvastatin 40 MG Tab **OWN MED PO SCH (21:18)
[2018-05-01] MEDS: [UNRECOGNIZED DRUG - OTHER] PO PRN (21:19)
[2018-05-01] MEDS: ACETAMINOPHEN PO PRN (21:19)
[2018-05-02] MEDS: Enoxaparin 40 MG/0.4 ML Syringe SUBCUT SCH (09:30)
[2018-05-02] MEDS: Lidocaine 5% 700 MG Patch TOP SCH (09:30)
[2018-05-02] MEDS: VIT K1 PO SCH (09:32)
[2018-05-02] MEDS: VITAMIN D3 PO SCH (09:32)
[2018-05-02] MEDS: CALCIUM CARB PO SCH (09:32)
[2018-05-02] MEDS: VITAMIN D3 1000 UNIT PO SCH (09:33)
[2018-05-02] MEDS: CHOLESTYRAMINE PO SCH (09:33)
[2018-05-02] MEDS: [UNRECOGNIZED DRUG - OTHER] PO SCH (09:33)
[2018-05-02] MEDS: [UNRECOGNIZED DRUG - OTHER] PO PRN ×2 (09:34→21:32)
[2018-05-02] MEDS: OXYBUTYNIN 10 MG PO SCH (09:34)
[2018-05-02] MEDS: ACETAMINOPHEN PO PRN ×2 (09:34→21:32)
[2018-05-02] MEDS: FOLIC ACID 400 MCG PO SCH (09:34)
[2018-05-02] MEDS: Simvastatin 40 MG Tab **OWN MED PO SCH (21:32)
[2018-05-02] MEDS: REMOVE LIDOCAINE TRDERM SCH (21:33)
[2018-05-03] MEDS: CHOLESTYRAMINE PO SCH (08:47)
[2018-05-03] MEDS: [UNRECOGNIZED DRUG - OTHER] PO SCH (08:47)
[2018-05-03] MEDS: Lidocaine 5% 700 MG Patch TOP SCH (08:48)
[2018-05-03] MEDS: Enoxaparin 40 MG/0.4 ML Syringe SUBCUT SCH (08:48)
[2018-05-03] MEDS: FOLIC ACID 400 MCG PO SCH (08:49)
[2018-05-03] MEDS: VITAMIN D3 1000 UNIT PO SCH (08:49)
[2018-05-03] MEDS: OXYBUTYNIN 10 MG PO SCH (08:50)
[2018-05-03] MEDS: ACETAMINOPHEN PO PRN ×2 (08:50→21:02)
[2018-05-03] MEDS: VIT K1 PO SCH (08:50)
[2018-05-03] MEDS: [UNRECOGNIZED DRUG - OTHER] PO PRN ×2 (08:50→21:02)
[2018-05-03] MEDS: VITAMIN D3 PO SCH (08:50)
[2018-05-03] MEDS: CALCIUM CARB PO SCH (08:50)
[2018-05-03] MEDS: REMOVE LIDOCAINE TRDERM SCH (21:01)
[2018-05-03] MEDS: Simvastatin 40 MG Tab **OWN MED PO SCH (21:03)
[2018-05-04] MEDS: VITAMIN D3 PO SCH (08:43)
[2018-05-04] MEDS: VIT K1 PO SCH (08:43)
[2018-05-04] MEDS: CALCIUM CARB PO SCH (08:43)
[2018-05-04] MEDS: VITAMIN D3 1000 UNIT PO SCH (08:45)
[2018-05-04] MEDS: FOLIC ACID 400 MCG PO SCH (08:46)
[2018-05-04] MEDS: OXYBUTYNIN 10 MG PO SCH (08:47)
[2018-05-04] MEDS: Lidocaine 5% 700 MG Patch TOP SCH (08:47)
[2018-05-04] MEDS: Enoxaparin 40 MG/0.4 ML Syringe SUBCUT SCH (08:48)
[2018-05-04] MEDS: CHOLESTYRAMINE PO SCH (08:51)
[2018-05-04] MEDS: [UNRECOGNIZED DRUG - OTHER] PO SCH (08:51)
[2018-05-04] MEDS: REMOVE LIDOCAINE TRDERM SCH (20:45)
[2018-05-04] MEDS: Simvastatin 40 MG Tab **OWN MED PO SCH (20:45)
[2018-05-05] MEDS: Enoxaparin 40 MG/0.4 ML Syringe SUBCUT SCH (08:46)
[2018-05-05] MEDS: Lidocaine 5% 700 MG Patch TOP SCH (08:46)
[2018-05-05] MEDS: FOLIC ACID 400 MCG PO SCH (08:47)
[2018-05-05] MEDS: OXYBUTYNIN 10 MG PO SCH (08:48)
[2018-05-05] MEDS: VITAMIN D3 1000 UNIT PO SCH (08:48)
[2018-05-05] MEDS: CALCIUM CARB PO SCH (09:00)
[2018-05-05] MEDS: VIT K1 PO SCH (09:00)
[2018-05-05] MEDS: CHOLESTYRAMINE PO SCH (09:00)
[2018-05-05] MEDS: [UNRECOGNIZED DRUG - OTHER] PO SCH (09:00)
[2018-05-05] MEDS: VITAMIN D3 PO SCH (09:00)
--- NOTE | 2018-05-05 09:43 | PCM.PN ---
- General Info Date of Service: 05/05/18 Admission Dx/Problem (Free Text): left sided rib fractures, general debility Subjective Update: No new complaints today. Feels much better. Working with PT/OT and doing well. Functional Status: Reports: Pain Controlled - Review of Systems General: Reports: No Symptoms HEENT: Reports: No Symptoms Pulmonary: Reports: No Symptoms Cardiovascular: Reports: No Symptoms Gastrointestinal: Reports: No Symptoms Genitourinary: Reports: No Symptoms Musculoskeletal: Reports: Other (mild left flank pain, controlled) Skin: Reports: No Symptoms - Patient Data Vitals - Most Recent: Last Vital Signs Temp 36.4 C 05/05/18 07:49 Pulse 78 05/05/18 07:49 Resp 20 05/05/18 07:49 BP 100/63 05/05/18 07:49 Pulse Ox 96 05/05/18 07:49 Weight - Most Recent: 59.024 kg I&O - Last 24 Hours: Intake & Output 05/04/18 05/05/18 05/05/18 22:59 06:59 14:59 Intake Total 100 100 160 Balance 100 100 160 Med Orders - Current: Current Medications Calcium Carbonate/Glycine (Tums) 500 mg PO QID PRN PRN Reason: Dyspepsia Enoxaparin Sodium (Lovenox) 40 mg SUBCUT DAILY [facility] Last Admin: 05/05/18 08:46 Dose: 40 mg Lidocaine (Lidoderm 5%) 700 mg TOP Q24H [facility] Last Admin: 05/05/18 08:46 Dose: 700 mg Magnesium Hydroxide (Milk Of Magnesia) 30 ml PO Q12H PRN PRN Reason: Constipation Miscellaneous Information (Remove Patch) 1 ea TRDERM BEDTIME [facility] Last Admin: 05/04/18 20:45 Dose: Not Given Oxybutynin Er 10 Mg (Own Med) 0 each PO DAILY [facility] Last Admin: 05/05/18 08:48 Dose: 1 each Folic Acid 400 Mcg * (*Own Med) 0 each PO DAILY [facility] Last Admin: 05/05/18 08:47 Dose: 1 each Vitamin D3 1000 (Units Own Med) 0 each PO DAILY [facility] Last Admin: 05/05/18 08:48 Dose: 1 each Ondansetron HCl (Zofran Odt) 4 mg PO Q4H PRN PRN Reason: nausea, able to take PO Last Admin: 04/30/18 08:59 Dose: 4 mg Calcium Carb/Vitamin D3/Vit K1 [Viactiv Soft Chew] Pt Own Med 1 each PO DAILY [facility] Last Admin: 05/05/18 09:00 Dose: Not Given Cholestyramine For Oral Suspension, Light PowderPt's Own Med 0 each PO QAM [facility] Last Admin: 05/05/18 09:00 Dose: Not Given Arthritis Pain: Acetaminopehn Extended-Release 650 Mg TabPt's Own Med 0 each PO Q6H PRN PRN Reason: Pain Last Admin: 05/03/18 21:02 Dose: 1 each Ibuprofen 200 MgPt ('s Own Med) 0 each PO Q8H PRN PRN Reason: Pain Last Admin: 04/29/18 19:40 Dose: 1 each Polyethylene Glycol (Miralax) 17 gm PO DAILY PRN PRN Reason: Constipation Senna/Docusate Sodium (Senna Plus) 1 tab PO BEDTIME PRN PRN Reason: Constipation Simvastatin (Zocor) 40 mg PO BEDTIME [facility] Last Admin: 05/04/18 20:45 Dose: 40 mg Temazepam (Restoril) 15 mg PO BEDTIME PRN PRN Reason: Sleep Last Admin: 04/29/18 20:37 Dose: 15 mg Discontinued Medications Acetaminophen (Tylenol) 650 mg PO Q4H PRN PRN Reason: Pain (mild 1-3) Last Admin: 04/20/18 09:34 Dose: 650 mg Folic Acid (Folic Acid) 1 mg PO DAILY [facility] Ibuprofen (Motrin) 400 mg PO Q6H PRN PRN Reason: Pain (moderate 4-6) Last Admin: 04/19/18 23:40 Dose: 400 mg Lidocaine (Lidoderm 5%) 700 mg TOP Q24H [facility] Miscellaneous Information (Remove Patch) 1 ea TRDERM Q24H [facility] Last Admin: 04/20/18 09:31 Dose: Not Given Non-Formulary Medication (Cholestyramine/Aspartame) 4 gm PO DAILY [facility] Oxycodone HCl (Oxycodone) 2.5 mg PO Q4H PRN PRN Reason: Pain (severe 7-10) Tramadol HCl (Ultram) 50 mg PO Q4H PRN PRN Reason: Pain Last Admin: 04/30/18 05:47 Dose: 50 mg - Exam General: Alert, Oriented HEENT: Pupils Equal Neck: Supple Lungs: Clear to Auscultation Cardiovascular: Regular Rate, Regular Rhythm GI/Abdominal Exam: Normal Bowel Sounds - Problem List Review Problem List Initiated/Reviewed/Updated: Yes - Plan Plan:: #Left sided rib fracture -continue pain management with lidocaine patch -PT/OT -planned discharge for Monday.
[2018-05-05] MEDS: IBUPROFEN 200 MG PO PRN (10:54)
[2018-05-05] MEDS: Simvastatin 40 MG Tab **OWN MED PO SCH (21:03)
[2018-05-05] MEDS: REMOVE LIDOCAINE TRDERM SCH (21:04)
[2018-05-05] MEDS: ACETAMINOPHEN PO PRN (21:12)
[2018-05-05] MEDS: [UNRECOGNIZED DRUG - OTHER] PO PRN (21:12)
[2018-05-06] MEDS: Lidocaine 5% 700 MG Patch TOP SCH (09:14)
[2018-05-06] MEDS: Enoxaparin 40 MG/0.4 ML Syringe SUBCUT SCH (09:14)
[2018-05-06] MEDS: OXYBUTYNIN 10 MG PO SCH (09:17)
[2018-05-06] MEDS: VIT K1 PO SCH (09:17)
[2018-05-06] MEDS: VITAMIN D3 PO SCH (09:17)
[2018-05-06] MEDS: VITAMIN D3 1000 UNIT PO SCH (09:17)
[2018-05-06] MEDS: CALCIUM CARB PO SCH (09:17)
[2018-05-06] MEDS: FOLIC ACID 400 MCG PO SCH (09:17)
[2018-05-06] MEDS: CHOLESTYRAMINE PO SCH (09:18)
[2018-05-06] MEDS: ACETAMINOPHEN PO PRN ×2 (09:18→20:55)
[2018-05-06] MEDS: [UNRECOGNIZED DRUG - OTHER] PO PRN ×2 (09:18→20:55)
[2018-05-06] MEDS: [UNRECOGNIZED DRUG - OTHER] PO SCH (09:18)
[2018-05-06] MEDS: REMOVE LIDOCAINE TRDERM SCH (20:55)
[2018-05-06] MEDS: Simvastatin 40 MG Tab **OWN MED PO SCH (20:55)
[2018-05-07] MEDS: Enoxaparin 40 MG/0.4 ML Syringe SUBCUT SCH (08:30)
[2018-05-07] MEDS: Lidocaine 5% 700 MG Patch TOP SCH (08:30)
[2018-05-07] MEDS: [UNRECOGNIZED DRUG - OTHER] PO PRN ×2 (08:31→21:59)
[2018-05-07] MEDS: ACETAMINOPHEN PO PRN ×2 (08:31→21:59)
[2018-05-07] MEDS: OXYBUTYNIN 10 MG PO SCH (08:31)
[2018-05-07] MEDS: FOLIC ACID 400 MCG PO SCH (08:32)
[2018-05-07] MEDS: VITAMIN D3 1000 UNIT PO SCH (08:32)
[2018-05-07] MEDS: CHOLESTYRAMINE PO SCH (08:33)
[2018-05-07] MEDS: VITAMIN D3 PO SCH (08:33)
[2018-05-07] MEDS: [UNRECOGNIZED DRUG - OTHER] PO SCH (08:33)
[2018-05-07] MEDS: CALCIUM CARB PO SCH (08:33)
[2018-05-07] MEDS: VIT K1 PO SCH (08:33)
[2018-05-07] MEDS: REMOVE LIDOCAINE TRDERM SCH (21:57)
[2018-05-07] MEDS: Simvastatin 40 MG Tab **OWN MED PO SCH (21:58)
[2018-05-08] MEDS: Enoxaparin 40 MG/0.4 ML Syringe SUBCUT SCH ×2 (08:26→08:30)
[2018-05-08] MEDS: Lidocaine 5% 700 MG Patch TOP SCH (08:26)
[2018-05-08] MEDS: OXYBUTYNIN 10 MG PO SCH (08:27)
[2018-05-08] MEDS: FOLIC ACID 400 MCG PO SCH (08:27)
[2018-05-08] MEDS: VIT K1 PO SCH (08:28)
[2018-05-08] MEDS: CHOLESTYRAMINE PO SCH (08:28)
[2018-05-08] MEDS: VITAMIN D3 1000 UNIT PO SCH (08:28)
[2018-05-08] MEDS: VITAMIN D3 PO SCH (08:28)
[2018-05-08] MEDS: CALCIUM CARB PO SCH (08:28)
[2018-05-08] MEDS: [UNRECOGNIZED DRUG - OTHER] PO SCH (08:28)
--- NOTE | 2018-05-08 09:57 | PCM.DCSUM1 ---
Discharge Summary - Hospital Course Free Text/Narrative:: 87 yo F admitted to swing bed after fall with debility and multiple rib fractures. She improved with PT/OT during her stay. Front wheel walker was prescribed. Home Nurse, Home PT/OT was also arranged. Lidocaine patches prescribed for left rib cage pain for one week. Follow up with PCP - Discharge Data Discharge Date: 05/08/18 Discharge Disposition: Home, Self-Care 01 Condition: Fair - Patient Summary/Data Consults: Consultations 04/19/18 16:06 OT Evaluation and Treatment [CONS] Routine PT Evaluation and Treatment [CONS] Routine - Patient Instructions Diet: Usual Diet as Tolerated Activity: Full Weight Bearing Showering/Bathing: February Shower - Discharge Plan Prescriptions/Med Rec: Lidocaine 5% [Lidoderm 5%] 700 mg TOP Q24H 7 Days #7 patch Home Medications: Home Meds Calcium Carb/Vitamin D3/Vit K1 [Viactiv Soft Chew] 1 each PO DAILY 04/16/18 [ History] Cholestyramine/Aspartame [Cholestyramine Light] 4 gm PO DAILY 04/16/18 [History] Folic Acid 1 mg PO DAILY 04/16/18 [History] Oxybutynin Chloride [Ditropan Xl] 10 mg PO DAILY 04/16/18 [History] Simvastatin [Zocor] 40 mg PO BEDTIME 04/16/18 [History] Lidocaine 5% [Lidoderm 5%] 700 mg TOP Q24H 7 Days #7 patch 05/08/18 [Rx] Patient Handouts: Fall Prevention in the Home, [id number], Rib Fracture, Easy -to-Read - Discharge Summary/Plan Comment DC Time >30 min.: Yes Discharge Summary/Plan Comment: 87 yo F admitted to swing bed after fall with debility and multiple rib fractures. She improved with PT/OT during her stay. Front wheel walker was prescribed. Home Nurse, Home PT/OT was also arranged. Lidocaine patches prescribed for left rib cage pain for one week. Follow up with PCP - Patient Data Vitals - Most Recent: Last Vital Signs Temp 36.7 C 05/08/18 08:04 Pulse 76 05/08/18 08:04 Resp 20 05/08/18 08:04 BP 136/54 L 05/08/18 08:04 Pulse Ox 97 05/08/18 08:04 Weight - Most Recent: 59.024 kg I&O - Last 24 hours: Intake & Output 05/07/18 05/08/18 05/08/18 22:59 06:59 14:59 Intake Total 100 Balance 100 Med Orders - Current: Current Medications Calcium Carbonate/Glycine (Tums) 500 mg PO QID PRN PRN Reason: Dyspepsia Enoxaparin Sodium (Lovenox) 40 mg SUBCUT DAILY [facility] Last Admin: 05/08/18 08:30 Dose: Not Given Lidocaine (Lidoderm 5%) 700 mg TOP Q24H [facility] Last Admin: 05/08/18 08:26 Dose: 700 mg Magnesium Hydroxide (Milk Of Magnesia) 30 ml PO Q12H PRN PRN Reason: Constipation Miscellaneous Information (Remove Patch) 1 ea TRDERM BEDTIME [facility] Last Admin: 05/07/18 21:57 Dose: Not Given Oxybutynin Er 10 Mg (Own Med) 0 each PO DAILY [facility] Last Admin: 05/08/18 08:27 Dose: 1 each Folic Acid 400 Mcg * (*Own Med) 0 each PO DAILY [facility] Last Admin: 05/08/18 08:27 Dose: 1 each Vitamin D3 1000 (Units Own Med) 0 each PO DAILY [facility] Last Admin: 05/08/18 08:28 Dose: 1 each Ondansetron HCl (Zofran Odt) 4 mg PO Q4H PRN PRN Reason: nausea, able to take PO Last Admin: 04/30/18 08:59 Dose: 4 mg Calcium Carb/Vitamin D3/Vit K1 [Viactiv Soft Chew] Pt Own Med 1 each PO DAILY [facility] Last Admin: 05/08/18 08:28 Dose: 1 each Cholestyramine For Oral Suspension, Light PowderPt's Own Med 0 each PO QAM [facility] Last Admin: 05/08/18 08:28 Dose: Not Given Arthritis Pain: Acetaminopehn Extended-Release 650 Mg TabPt's Own Med 0 each PO Q6H PRN PRN Reason: Pain Last Admin: 05/07/18 21:59 Dose: 1 each Ibuprofen 200 MgPt ('s Own Med) 0 each PO Q8H PRN PRN Reason: Pain Last Admin: 05/05/18 10:54 Dose: 1 each Polyethylene Glycol (Miralax) 17 gm PO DAILY PRN PRN Reason: Constipation Senna/Docusate Sodium (Senna Plus) 1 tab PO BEDTIME PRN PRN Reason: Constipation Simvastatin (Zocor) 40 mg PO BEDTIME [facility] Last Admin: 05/07/18 21:58 Dose: 40 mg Temazepam (Restoril) 15 mg PO BEDTIME PRN PRN Reason: Sleep Last Admin: 04/29/18 20:37 Dose: 15 mg Discontinued Medications Acetaminophen (Tylenol) 650 mg PO Q4H PRN PRN Reason: Pain (mild 1-3) Last Admin: 04/20/18 09:34 Dose: 650 mg Folic Acid (Folic Acid) 1 mg PO DAILY [facility] Ibuprofen (Motrin) 400 mg PO Q6H PRN PRN Reason: Pain (moderate 4-6) Last Admin: 04/19/18 23:40 Dose: 400 mg Lidocaine (Lidoderm 5%) 700 mg TOP Q24H [facility] Miscellaneous Information (Remove Patch) 1 ea TRDERM Q24H [facility] Last Admin: 04/20/18 09:31 Dose: Not Given Non-Formulary Medication (Cholestyramine/Aspartame) 4 gm PO DAILY [facility] Oxycodone HCl (Oxycodone) 2.5 mg PO Q4H PRN PRN Reason: Pain (severe 7-10) Tramadol HCl (Ultram) 50 mg PO Q4H PRN PRN Reason: Pain Last Admin: 04/30/18 05:47 Dose: 50 mg
== END 2018-05-08 13:30 | disposition home or self-care (01) | DRG 561 ==
LOC: DL.MS 13:19 → UNDOADMIN 13:19 → DL.MS 16:07
PROVIDERS: ADMIT Internal Medicine; ATTEND Internal Medicine
DX: S22.42XD Multiple fractures of ribs, left side, subsequent encounter for fracture with routine healing (principal); W19.XXXD Unspecified fall, subsequent encounter; R53.81 Other malaise; M81.0 Age-related osteoporosis without current pathological fracture; N32.81 Overactive bladder; M06.9 Rheumatoid arthritis, unspecified; K57.90 Diverticulosis of intestine, part unspecified, without perforation or abscess without bleeding; E78.5 Hyperlipidemia, unspecified; M19.90 Unspecified osteoarthritis, unspecified site; Z96.649 Presence of unspecified artificial hip joint; Z90.710 Acquired absence of both cervix and uterus; Z90.49 Acquired absence of other specified parts of digestive tract; Z88.1 Allergy status to other antibiotic agents
CPT/HCPCS: 71046; 97116-GP; 97162-GP; 97166-GO; 97530-GO; 97535-GO; A9270-GY; J1650